=== PATIENT | female | born 1990 | race Caucasian/White ===

== ENCOUNTER 2016-05-07 20:15 | Emergency (ER) | payer BC, OTHER ==
[~2016-05-07] VITALS: Ht 167.6 cm; Wt 132.9 kg
[~2016-05-07 20:15] MED LIST: BCPILLS PO; DIPH25CA65 PO; PHEN37.585 PO
[2016-05-07 20:29] VITALS: TEMP 36.8; Ht 167.6 cm; Wt 132.9 kg
[2016-05-07] MEDS ORDERED: TRAMADOL HCL 50 MG TAB PO STA (20:54)
[2016-05-07] MEDS ORDERED: ULT/50 PO (21:04)
[2016-05-07] MEDS ORDERED: FLX/5 PO (21:04)
--- NOTE | 2016-05-07 21:19 | DIAGNOSTIC IMAGING REPORT ---
LEFT TIBIA/FIBULA 2 VIEWS ROUTINE CLINICAL HISTORY: left knee/leg injury, foot numbness COMPARISON: None. DISCUSSION: The bones and joint spaces appear intact. There is no evidence of fracture, dislocation or bony disease. There is no evidence for soft tissue swelling. IMPRESSION: Negative study. Electronically signed by: Chucky Bailey M.D. 05/07/2016 9:18 PM Dictated Date/Time: 05/07/2016 9:18 PM
--- NOTE | 2016-05-07 21:19 | DIAGNOSTIC IMAGING REPORT ---
LEFT KNEE 3 VIEWS CLINICAL HISTORY: left knee/leg injury, foot numbness pain COMPARISON: None. DISCUSSION: Lateral partial patellar subluxation. Small joint effusion. No evidence for fracture. Joint spaces are well preserved. There is no evidence for soft tissue swelling. IMPRESSION: Lateral patellar subluxation. Electronically signed by: Chucky Bailey M.D. 05/07/2016 9:18 PM Dictated Date/Time: 05/07/2016 9:17 PM
[2016-05-07] MEDS ORDERED: OXYCODONE HCL IR 5 MG TAB (IMMEDIATE RELEASE) PO STA (21:50)
--- NOTE | 2016-05-07 22:31 | DIAGNOSTIC IMAGING REPORT ---
RIGHT KNEE 3 VIEWS CLINICAL HISTORY: compare to left knee Right trauma COMPARISON: Left knee same date DISCUSSION: The bones and joint spaces appear intact. There is no evidence of fracture, dislocation or bony disease. There is no evidence for soft tissue swelling. IMPRESSION: Negative study. All bony structures are aligned appropriately in the right knee. Electronically signed by: Chucky Bailey M.D. 05/07/2016 10:30 PM Dictated Date/Time: 05/07/2016 10:29 PM
--- NOTE | 2016-05-07 23:59 | EMERGENCY ROOM VISIT NOTE ---
ED Visit Note First contact with patient: 20:40 CHIEF COMPLAINT: Knee pain HISTORY OF PRESENT ILLNESS: This 26-year-old female patient presents to the emergency department ambulatory complaining of left knee pain. The patient reports that she fell and twisted her knee on a trampoline 3 days ago. At that time, she was seen at [facility] emergency department and had x-rays of the knee which were normal. She was seen at [facility] yesterday and states that they are awaiting insurance approval to order an MRI of the knee. She denies any history of knee problems. The patient presents today due to increased pain and states that her left foot is colder than the right. She does report some numbness of the left foot. She rates her discomfort a 9/10. She has been taking tramadol at home for pain with some relief. She has been using crutches to aid with ambulation. No ankle, foot or hip pain. REVIEW OF SYSTEMS: A 6 system review of systems was completed with positives and pertinent negatives listed in the HPI. ALLERGIES: No known drug allergies MEDICATIONS: Tramadol, Flexeril PMH: No significant past medical history. SOCIAL HISTORY: The patient lives locally with family. PHYSICAL EXAM: Vital Signs: Reviewed Nurse's notes, vital signs stable. GENERAL : This is a 26-year-old female, no acute distress, but appears in pain, well- developed, well-nourished. MENTAL STATUS: Alert, oriented to person place and time, and cooperative. MUSCULOSKELETAL: Examination of the left knee is difficult secondary to patient's body habitus. There is tenderness over the lateral aspect of the left knee. There is no ecchymosis or significant swelling. Patient has significantly decreased range of motion secondary to pain. Ligamentous examination cannot be performed due to patient discomfort. The left foot is slightly colder than the right, but the toes are well perfused. Dorsalis pedis pulse 2+ bilaterally. Sensation to pain and light touch is intact. Capillary refill less than 2 seconds. EMERGENCY DEPARTMENT COURSE: I examined the patient. She was given 50 mg tramadol for pain. She was later given 5 mg OxyIR for pain. X-rays of the left knee and tib-fib/fib were reviewed by myself and read by radiology and reveal partial lateral subluxation of the patella. I did attempt reduction, but was unsuccessful. On examination, the patient does have some temperature change in the left foot compared to the right. She does have good pedal pulses. I spoke with Dr. Rahman regarding the patient. He felt that the subluxation may be secondary to the patient's body habitus and recommended contralateral films and arterial Doppler of the left leg. He felt that as long as there was no vascular injury, the patient could be discharged home in a knee immobilizer to follow-up in the office. X-rays of the right knee were performed and were normal. There was no subluxation of the patella. Arterial Doppler was performed of the left leg and showed normal arterial flow. The patient was informed of all findings. She has a knee immobilizer and crutches and understands that she will need to follow-up with orthopedics within the next 1-2 days for further evaluation of this knee pain. She should return sooner for worsening symptoms. She verbalized understanding of my assessment and treatment plan. The patient was discharged home in good condition. DIAGNOSIS: Left knee injury Problem List Medical Problems: (1) Kidney stones Status: Resolved Current/Historical Medications Scheduled Cyclobenzaprine HCl (Cyclobenzaprine HCl), 5 MG PO PRN Tramadol Hcl (Ultram), 50 MG PO Q6H Allergies Coded Allergies: Pineapple (Verified Allergy, Unknown, numbness of mouth and hands, swelling, 06/26/15) Vital Signs Date Time Temp Pulse Resp B/P Pulse Ox O2 Delivery O2 Flow Rate FiO2 05/08/16 00:10 102 18 137/84 98 05/07/16 20:29 36.8 114 20 97 Room Air Medications Administered Medications (Trade) Dose Ordered Sig/Jaymie Route Start Time Stop Time Status Last Admin Dose Admin Tramadol HCl (Ultram Tab) 50 mg NOW STAT PO 05/07/16 20:54 05/07/16 20:55 DC 05/07/16 21:16 50 MG Oxycodone HCl (Roxicodone Immediate Rel Tab) 5 mg NOW STAT PO 05/07/16 21:50 05/07/16 21:51 DC 05/07/16 22:00 5 MG Departure Information Impression Primary Impression: Lateral subluxation of left patella Dispostion Home / Self-Care Condition GOOD Referrals Omar Rodriguez M.D. (PCP) Sergo RahmanD.Dior Patient Instructions My [facility] Additional Instructions You have been treated in the Emergency Department for Knee Pain. You have received pain medicine in the emergency department which impairs your ability to operate a vehicle. It is illegal for you to drive after receiving these medicines. For pain control, you can use the following dbaw-tfy-eoolgsg medicines (if >12 yo): - Regular strength (325mg/tab) Tylenol (acetaminophen) 2 tabs every 4-6 hours as needed. Do not exceed 12 tablets in a 24 hour period. Avoid taking more than 4 grams (4000 mg) of Tylenol per day. This includes any other sources of acetaminophen you may take on a regular basis. - Regular strength (200 mg/tab) Advil (ibuprofen) 1-2 tabs every 4-6 hours as needed. Do not exceed a dose of 3200 mg per day. If this is a recent injury (<24 hrs), ice can be applied to the area of pain for the first 3 days to help decrease pain and inflammation. Ice massages can be performed by freezing water in a paper cup, peeling back the cup to expose the ice and then massaging over the affected area. You have been provided the number for an Orthopaedic Surgeon. You should call this number as soon as possible to establish a follow-up visit from today's Emergency Department visit. Keep the knee brace in place until cleared by Orthopedics. Use the crutches you have been provided to keep ALL weight off of the knee until weight bearing is tolerable. Return to the Emergency Department if your current symptoms worsen despite treatment course outlined above. Problem Qualifiers Primary Impression: Lateral subluxation of left patella Encounter type: initial encounter Qualified Codes: S83.012A - Lateral subluxation of left patella, initial encounter
[2016-05-08 00:10] VITALS: BP 137/84; PULSE 102; O2SAT 98
--- NOTE | 2016-05-08 06:48 | DIAGNOSTIC IMAGING REPORT ---
LEFT LOWER EXTREMITY ARTERIAL DOPPLER ULTRASOUND CLINICAL HISTORY: Left knee injury, foot cold, numbness COMPARISON STUDY: No previous studies for comparison TECHNIQUE: Color and duplex Doppler sonography of the arterial system of the left lower extremity was performed. FINDINGS: The left ankle to brachial index measured 1.08 when utilizing the posterior tibial artery and 1.1 when using the dorsalis pedis. There is triphasic flow within the left common femoral, superficial femoral, popliteal, posterior tibial and peroneal arteries with biphasic flow within the anterior tibial and dorsalis pedis. No elevated velocities were identified within the left lower extremity. IMPRESSION: 1. Unremarkable left lower extremity arterial Doppler. No stenosis or vessel occlusion identified. 2. Normal left ankle to brachial index. Electronically signed by: Alexi Silvestre M.D. 05/08/2016 6:47 AM Dictated Date/Time: 05/08/2016 6:45 AM
== END 2016-05-08 00:11 | disposition home or self-care (01) ==
LOC: C.EDB 20:16 → C.EDD 05-08 00:11
DX: S83.012A Lateral subluxation of left patella, initial encounter (principal); W09.8XXA Fall on or from other playground equipment, initial encounter; Y93.44 Activity, trampolining; Y99.8 Other external cause status

== ENCOUNTER → 2017-08-08 | Outpatient (CLI) | payer OTHER ==
[~2017-08-08] MED LIST changes: -BCPILLS PO; -DIPH25CA65 PO; +FLX/5 PO; -PHEN37.585 PO; +ULT/50 PO
== END | disposition home or self-care (01) ==
LOC: C.LABSPEC 15:38
PROVIDERS: ATTEND Obstetrics & Gynecology
DX: Z34.01 Encounter for supervision of normal first pregnancy, first trimester (principal)

== ENCOUNTER → 2017-08-15 | Outpatient (CLI) | payer OTHER ==
[2017-08-15 13:20] LABS: BASO % 0.2 %; BASO ABS # 0.03 K/uL (0-0.2); EOS % 0.7 %; EOS ABS # 0.09 K/uL (0-0.5); HEMATOCRIT 36.6 % (37-47); HEMOGLOBIN 12.9 g/dL (12.0-16.0); LYMPH % 16.6 %; LYMPH ABS # 2.15 K/uL (1.2-3.4); MEAN CELL VOLUME 80.4 fL (80-100); MEAN CORPUSCULAR HEMOGLOBIN 28.4 pg (25-34); MEAN CORPUSCULAR HGB CONC 35.2 g/dl (32-36); MEAN PLATELET VOLUME 10.5 fL (7.4-10.4); MONO % 6.6 %; MONO ABS # 0.86 K/uL (0.11-0.59); NEUT % 75.1 %; NEUT ABS # 9.75 K/uL (1.4-6.5); PLATELET COUNT 234 K/uL (130-400); RED CELL DISTRIBUTION WIDTH CV 12.5 % (11.5-14.5); RED CELL DISTRIBUTION WIDTH SD 36.3 fL (36.4-46.3); WHITE BLOOD COUNT 12.98 K/uL (4.8-10.8)
== END | disposition home or self-care (01) ==
LOC: C.LAB1850 12:38
PROVIDERS: ATTEND Obstetrics & Gynecology
DX: Z34.01 Encounter for supervision of normal first pregnancy, first trimester (principal)

== ENCOUNTER 2019-08-16 05:43 | Inpatient (IN) ==
--- NOTE | 2019-08-11 17:30 | History & Physical Report ---
Date of Service August 11, 2019 Assessment & Plan (1) : Plan for repeat section. Informed consent signed in office, questions answered. (2) Previous delivery affecting , antepartum: History of Present Illness Chief Complaint: Repeat section Primary Care Provider: Omar Rodriguez 29yo @ 39 05/07 with h/o , desires repeat. complicated by: GDM on Insulin WKLY NST's @32wks and TWICE wkly @36wks Serial Growth US @ 28wks Deliver by EDC Obesity *BMI 35 or >At start of preg, growth US @ 32wks Prior for Oligo @ 38wk Delivered Feb 2018. LEEP 07/17. Less than 18mos from last delivery. Will be for Repeat CS. C/S RESCHEDULED FOR 08/[address] COLIN AND DR. PYLE ASSIST [facility] anatomy scan- Apr 15 @945, needs f/u d/t body habitus-scheduled on 05/05 - Anatomy scan 05/05 at [facility] unremarkable-[facility] - Fundal placenta per [facility] Allergies Allergy/AdvReac Type Severity Reaction Status Date / Time pineapple Allergy Severe numbness Verified 08/05/19 09:37 of mouth and hands, swelling No Known Drug Allergies Allergy Verified 08/05/19 09:37 Home Medications Home Medications Medication Instructions Recorded Confirmed Type PNV cmb#95-ferrous fumarate-FA 1 tab PO DAILY 03/12/18 08/05/19 History [] Accu-Chek Fastclix Lancet Drum #204 ea NS 02/16/19 08/05/19 Rx Accu-Chek Guide #200 ea NS 02/16/19 08/05/19 Rx Accu-Chek Guide Glucose Meter #1 ea NS 02/16/19 08/05/19 Rx acetone (urine) test #50 ea 02/16/19 08/05/19 Rx blood sugar diagnostic #360 ea 05/26/19 08/05/19 Rx insulin syringe-needle U-100 0.5 #50 ea 06/15/19 08/05/19 Rx mL 31 gauge x 5/16" pen needle, diabetic 32 gauge x #100 ea 06/15/19 08/05/19 Rx 5/32" acetaminophen [Acetaminophen Extra 1,000 mg PO Q6H PRN 07/30/19 08/05/19 History Strength] docusate sodium 500 mg PO HS 07/30/19 08/05/19 History Patient History Medical History GERD (gastroesophageal reflux disease) Gestational diabetes History of kidney stones NO SURGERY History of panic attacks Hx of chlamydia infection 10 YEARS AGO Oligohydramnios WITH LAST (NOT A CURRENT PROBLEM) Passed out "WITH SIGHT OR TALKING ABOUT BLOOD" Temporomandibular joint disorder Unfavorable cervix in term Surgical History History of colonoscopy History of tonsillectomy S/P section X 1 S/P knee surgery LEFT KNEE S/P loop electrosurgical excision procedure S/P wisdom tooth extraction Family History Grandfather (Paternal) Diabetes mellitus, type 2 Aunt Diabetes mellitus, type 2 Brother Hypertension Mother Cancer Social History Preferred Language: Sinhala Communication Ability: Effective Ore Miner Required: Voice Beliefs That Will Affect Care: None marital status: marital status details: Gerardo Harrington (29) [phone] Current Living Situation: Family Current Living Situation Comment: lives with spouse, daughter, no pets current occupational status: unemployed 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 No s/s chorio or abruption. Skin: no rashes, warm and dry Psychiatric: A+Ox3, euthymic affect Monitoring External Monitor Please see L&D flowsheet. Coding Level of Care Code None Diagnoses Z34.90 Previous delivery affecting , antepartum O34.219
--- NOTE | 2019-08-13 10:03 | Anesthesiology Consultation ---
Date of Service August 13, 2019 Assessment & Plan (1) Encounter for pre-operative examination: Chart Review Chart Review: Acceptable Risk for Surgery and Patient NOT seen in Pre Admission Testing Consults Requested none Additional Notes Travel assessment/history reviewed - low risk at this time - will be reviewed the morning of surgery. History Surgery Operation Date: 08/16/19 07:30 Proposed Procedures p Section - Ivelisse Colin DO Height/Weight Height: 5 ft 6 in Weight: 151.046 kg Allergies Allergy/AdvReac Type Severity Reaction Status Date / Time pineapple Allergy Severe numbness Verified 08/05/19 09:37 of mouth and hands, swelling No Known Drug Allergies Allergy Verified 08/05/19 09:37 Medications Home Medications Medication Instructions Recorded Confirmed Last Taken PNV cmb#95-ferrous fumarate-FA 1 tab PO DAILY 03/12/18 08/05/19 03/12/18 02:00 [] Accu-Chek Fastclix Lancet Drum #204 ea NS 02/16/19 08/05/19 Unknown Accu-Chek Guide #200 ea NS 02/16/19 08/05/19 Unknown Accu-Chek Guide Glucose Meter #1 ea NS 02/16/19 08/05/19 Unknown acetone (urine) test #50 ea 02/16/19 08/05/19 Unknown blood sugar diagnostic #360 ea 05/26/19 08/05/19 Unknown insulin syringe-needle U-100 0.5 #50 ea 06/15/19 08/05/19 Unknown mL 31 gauge x 5/16" pen needle, diabetic 32 gauge x #100 ea 06/15/19 08/05/19 Unknown 5/32" acetaminophen [Acetaminophen Extra 1,000 mg PO Q6H PRN 07/30/19 08/05/19 Unknown Strength] docusate sodium 500 mg PO HS 07/30/19 08/05/19 Unknown Past Medical History Medical History (Updated 08/13/19 @ 10:02 by Nicol Land MD) GERD (gastroesophageal reflux disease) Gestational diabetes History of kidney stones NO SURGERY History of panic attacks Hx of chlamydia infection 10 YEARS AGO Morbid obesity Oligohydramnios WITH LAST (NOT A CURRENT PROBLEM) Passed out "WITH SIGHT OR TALKING ABOUT BLOOD" Temporomandibular joint disorder Unfavorable cervix in term Exercise / Class Metabolic Activity II 4-5 Yardwork/Stairs/Walk up hill (denies CP or SOB) Past Family History Family History Grandfather (Paternal) Diabetes mellitus, type 2 Aunt Diabetes mellitus, type 2 Brother Hypertension Mother Cancer Past Surgical History Surgical History History of colonoscopy History of tonsillectomy S/P section X 1 S/P knee surgery LEFT KNEE S/P loop electrosurgical excision procedure S/P wisdom tooth extraction Social History Smoking Status: Former smoker tobacco type: cigarettes Do You Dip or Chew Tobacco: No Smoking End Date: 11 YEARS AGO Hx Alcohol Use: No Hx Substance Use: No substance use type: does not use
[~2019-08-16 05:43] MED LIST changes: -FLX/5 PO; +SODIUM CHLORIDE 0.9% 250 ML IV PRN; -ULT/50 PO
[2019-08-16] MEDS ORDERED: CEFAZOLIN IV SCH (06:00)
[2019-08-16] MEDS ORDERED: CITRIC ACID/SODIUM CITRATE 15 ML UDC PO SCH (06:00)
[2019-08-16] MEDS ORDERED: CEFAZOLIN 3,000 MG in DEXTROSE 5% 50 ML IV SCH (06:00)
[2019-08-16 06:09] LABS: Basophils # (auto) 0.02 K/uL (0-0.2); Basophils % (auto) 0.2 %; Eosinophils # (auto) 0.09 K/uL (0-0.5); Eosinophils % (auto) 0.9 %; Hematocrit (blood only) 37.6 % (37-47); Hemoglobin 12.4 g/dL (12.0-16.0); Immature Granulocytes # (auto) 0.16 K/uL (0.00-0.02); Immature Granulocytes % (auto) 1.6 %; Lymphocytes # (auto) 2.47 K/uL (1.2-3.4); Lymphocytes % (auto) 24.7 %; Mean Corpuscular Hemoglobin 27.1 pg (25-34); Mean Corpuscular Volume 82.1 fL (80-100); Mean Platelet Volume 10.5 fL (7.4-10.4); Monocytes # (auto) 0.91 K/uL (0.11-0.59); Monocytes % (auto) 9.1 %; Neutrophils # (auto) 6.37 K/uL (1.4-6.5); Neutrophils % (auto) 63.5 %; Platelet Count 171 K/uL (130-400); RDW Coefficient of Variation 16.2 % (11.5-14.5); RDW Standard Deviation 47.8 fL (36.4-46.3); Red Blood Count 4.58 M/uL (4.2-5.4); White Blood Count 10.02 K/uL (4.8-10.8)
[2019-08-16] MEDS: LACTATED RINGER'S 1,000 ML IV SCH ×2 (06:10→07:12)
[2019-08-16] MEDS ORDERED: fentaNYL citrate 100 MCG/2 ML VIAL ONE (06:48)
[2019-08-16] MEDS ORDERED: OXYTOCIN 10 UNITS/ML VIAL ONE (06:48)
[2019-08-16] MEDS ORDERED: MoRPHine SULFATE PF 1 MG/ML 10 ML AMP/VIAL ONE (06:48)
--- NOTE | 2019-08-16 07:19 | History & Physical Bridge Note ---
Date of Service August 16, 2019 History & Physical Bridge Note I have examined the patient, reviewed the History & Physical and in the interval since the performance of the History & Physical I have noted the following changes of clinical significance: no changes noted
[2019-08-16] MEDS ORDERED: ePHEDrine sulfate 50 MG/ML AMP IV PRN (07:23)
[2019-08-16] MEDS ORDERED: MoRPHine SULFATE PF 1 MG/ML 10 ML AMP/VIAL INT SPINAL ONE (07:23)
[2019-08-16] MEDS ORDERED: MoRPHine SULFATE 2 MG/ML CARP IV PRN (07:23)
[2019-08-16] MEDS ORDERED: NALBUPHINE HCL INJ 10 MG/ML AMP IV PRN (07:23)
[2019-08-16] MEDS ORDERED: ONDANSETRON INJ 2 MG/ML 2 ML VIAL IV PRN (07:23)
[2019-08-16] MEDS ORDERED: LACTATED RINGER'S 500 ML IV PRN (07:23)
[2019-08-16] MEDS ORDERED: NALOXONE HCL 0.4 MG/1 ML VIAL/CARP IV PRN (07:23)
[2019-08-16] MEDS ORDERED: NALOXONE HCL 0.08 MG in SYRINGE 1.8 ML IV PRN (07:23)
[2019-08-16] MEDS ORDERED: DiphenhydrAMINE HCL 50 MG/ML VIAL IV PRN (07:23)
[2019-08-16] MEDS ORDERED: PROMETHAZINE HCL 25 MG in SODIUM CHLORIDE 0.9% 50 ML IV PRN (07:23)
[2019-08-16] MEDS ORDERED: NALOXONE HCL 1 MG in SODIUM CHLORIDE 0.9% 1000ML 1,000 ML IV PRN (07:23)
[2019-08-16] MEDS ORDERED: DC INTRASPINAL MORPHINE SCH (07:30)
[2019-08-16] MEDS ORDERED: NO NARCOTICS OR SEDATIVES SCH (07:30)
[2019-08-16] MEDS ORDERED: SODIUM CHLORIDE 0.9% 1000ML 1,000 ML IV SCH (07:30)
[2019-08-16] MEDS ORDERED: ONDANSETRON INJ 2 MG/ML 2 ML VIAL ONE (08:18)
[2019-08-16] MEDS ORDERED: MAGNESIUM HYDROXIDE SUSP 30 ML UDC PO PRN (09:14)
[2019-08-16] MEDS ORDERED: DIPHTHERIA/TETANUS/PERTUSSIS 0.5 ML SYR/VIAL IM ONE (09:14)
[2019-08-16] MEDS ORDERED: SUPERCREAM 0.870% 15 GM JAR EXT PRN (09:14)
[2019-08-16] MEDS ORDERED: BENZOCAINE 20% AER SPR 82.5 GM CAN EXT PRN (09:14)
[2019-08-16] MEDS ORDERED: HYDROCORTISONE ACETATE 25 MG SUPP PR PRN (09:14)
[2019-08-16] MEDS ORDERED: SENNA 8.6 MG TAB PO PRN (09:14)
--- NOTE | 2019-08-16 09:14 | Operative Report ---
PG Post Operative Report Pre & Post Diagnosis Operation Date: 08/16/19 07:30 Pre-Op Diagnosis: History of previous x 1 Desired Repeat Gestational Diabetes requiring insulin Obesity Post-Op Diagnosis: same I identified the patient and participated in the time-out.: Yes Procedure Operation Date: 08/16/19 07:30 Actual Procedures p Repeat low transverse Section - [facility] @ 0825 - Ivelisse Colin DO Surgeon Ivelisse Colin, Network Systems Analyst Shweta Jones MD, Tien Sawant MD PGY1 Estimated Blood Loss 500 Findings Consistent with Post-Op Diagnosis Viable female , Apgars 8/9 Weight 9#5 Specimens placenta, cord blood, cord gas. Drains vela, clear yellow Anesthesia Type Spinal Complications none Disposition Accompanied Patient To Recovery: Yes Disposition: L&D Indications 29yo @ 39 2/7 with h/o x 1, desire for repeat. Also complicated by obesity, GDMA2 . Description of Procedure Patient was seen in the preoperative holding area, where risks benefits and alternatives to surgery reviewed. She elected to proceed with the case. She was taken to the operating room, spinal anesthesia was performed. She received 3 g of Ancef preoperatively. She was then prepared and draped in the usual sterile fashion in the supine position with a leftward tilt. Timeout was confirmed. Anesthesia adequate. A Pfannenstiel skin incision was made with a scalpel, and carried through to the underlying layer of fascia. This was nicked at midline, and the incision was extended bilaterally both sharply sharply and bluntly. The superior aspect of the fascial incision was grasped with Mya clamps x2, elevated off the underlying rectus abdominis muscles, and dissected sharply and bluntly. In similar fashion, the inferior aspect of the fascial incision was dissected. The rectus abdominis muscles were midline, and the peritoneum was entered bluntly digitally. This incision was extended bluntly and sharply. The bladder blade was placed. A low transverse uterine incision was made with a new scalpel. The bladder was far away from the incision. The was delivered from a cephalic presentation. The head was delivered, followed by the right arm, followed by the left arm, followed by the body. No nuchal cord was noted. Spontaneous cry was heard on the field. The cord was doubly clamped and cut. The baby was handed off to the waiting pole inspector. Cord sample for blood gases were obtained. Cord blood was obtained. The placenta was delivered spontaneously intact. The uterus was exteriorized, and cleared of all clots and debris. The hysterotomy incision was reapproximated using 0 Vicryl in a running locked stitch. This second layer of the same suture was used to imbricate the incision. The posterior uterus was evaluated and found to be normal. The uterus was replaced into the abdomen. Xlkrwa-hu-[id number] sutures were used at the center aspect of the hysterotomy incision to obtain excellent hemostasis. The gutters were cleared of clots and debris. The uterus and hysterotomy were evaluated again, and found to be hemostatic. The fascial incision was reapproximated using 0 Vicryl in a running stitch. The subcutaneous tissue was irrigated, and reapproximated using 2-0 plain gut in a running stitch. The skin was reapproximated with 4-0 Vicryl in a running subcuticular stitch. A lyly wound dressing was applied. Sponge, instrument, needle counts were correct at the conclusion of the case x2. The patient was then moved to her labor and delivery room to recover in stable and good condition. I attest to the content of the Intraoperative Record and any orders documented therein. Any exceptions are noted below.
[2019-08-16] MEDS ORDERED: PHENYLEPHRINE 100MCG/ML 5ML SYR ONE (09:19)
[2019-08-16] MEDS ORDERED: ePHEDrine sulfate 50 MG/ML SYR ONE (09:19)
--- NOTE | 2019-08-16 10:05 | Anesthesiology Progress Note ---
Date of Service August 16, 2019 Anesthesia Post Procedure Vital Signs Vital Signs: Temp Pulse Resp BP Pulse Ox 08/16/19 10:00 94 H 98 08/16/19 09:55 94 H 122/57 L 99 08/16/19 09:50 106 H 97 08/16/19 09:45 98 H 119/61 99 08/16/19 09:40 97 H 95 08/16/19 09:39 94 H 94 08/16/19 09:35 100 H 130/60 87 L 08/16/19 09:34 101 H 92 08/16/19 09:30 105 H 100 08/16/19 09:25 96 H 128/61 98 08/16/19 09:20 90 100 08/16/19 09:15 99 H 132/68 100 08/16/19 07:18 20 08/16/19 05:56 36.8 C 18 08/16/19 05:49 96 H 137/84 Transfer of Care Handoff Completed per policy Notes Mental Status: alert / awake / arousable and participated in evaluation Patient Amnestic to Procedure: Yes Nausea / Vomiting: adequately controlled Pain: adequately controlled Airway Patency, RR, SpO2: stable & adequate BP & HR: stable & adequate Hydration State: stable & adequate Neuraxial Anesthesia: was administered and sensory block is resolving Anesthetic Complications: no major complications apparent and Pt Satisfied with anesthetic care
[2019-08-16 10:07] LABS: Base Excess Cord Arterial Bld -2.8 mEq/L (-9-1.8); CO2 Cord Arterial Blood 64 mmHg (39.1-73.5); HCO3 Cord Arterial Blood 26 mmol/L (19.7-28.5); Oxygen Sat Cord Arterial Blood < 60.0 % (<60); PO2 Cord Arterial Blood 21 mmHg (4.1-31.7); pH Cord Arterial Blood 7.22 (7.1-7.38)
[2019-08-16 10:08] LABS: Base Excess Cord Venous Blood -1.5 mEq/L (-7.7-1.9); Cord Venous Blood HCO3 25 mmol/L (18.4-26.8); Cord Venous Blood PCO2 51 mmHg (30.4-57.2); Cord Venous Blood PO2 31 mmHg (14.1-43.3); Cord Venous Blood pH 7.32 (7.20-7.44)
[2019-08-16] MEDS: OXYTOCIN 30 UNITS in LACTATED RINGER'S 1,000 ML IV SCH ×2 (10:30→19:02)
[2019-08-16] MEDS: SIMETHICONE 80 MG CHEW PO SCH ×3 (16:07→20:33)
[2019-08-16] MEDS: KETOROLAC 30 MG/ML VIAL IV PRN ×2 (16:56→22:40)
[2019-08-16] MEDS: DOCUSATE SODIUM 100 MG CAP PO SCH (20:33)
[2019-08-17] MEDS ORDERED: KETOROLAC 30 MG/ML VIAL IV PRN (01:24)
[2019-08-17] MEDS ORDERED: DiphenhydrAMINE HCL 50 MG/ML VIAL IV PRN (01:24)
[2019-08-17] MEDS ORDERED: MEPERIDINE HCL 50 MG/ML CARP IV PRN (01:24)
[2019-08-17] MEDS ORDERED: ONDANSETRON INJ 2 MG/ML 2 ML VIAL IV PRN (01:24)
[2019-08-17] MEDS ORDERED: PROMETHAZINE HCL 25 MG in SODIUM CHLORIDE 0.9% 50 ML IV PRN (01:24)
[2019-08-17] MEDS: OXYCODONE/ACETAMINOPHEN 5mg/325mg TAB PO PRN ×5 (01:46→20:49)
--- NOTE | 2019-08-17 05:52 | Obstetrical Progress Note ---
Date of Service August 17, 2019 Assessment & Plan Admission and Anticipated Discharge Date Admission Date: August 16, 2019 29 yo s/p repeat CS due to desire for repeat, complicated by GDMA2 and obesity - POD# 1 - GBS negative, Blood Type O+ - Hgb 9.8 - Feels well today. Eating well, voiding well, ambulating well. - Pain well controlled. - Routine post operative care - After discharge will have [address] Colin. Supervising Physician Co-Signing Physician Notes Resident Physician Supervision Note: I was present with [Name of resident] during the history and exam. I discussed the case with the resident and agree with the findings and plan as documented in the note. Any exceptions or clarifications are listed here: [None] Documented By: Mariella Jones MD, FACOG Subjective Doing well this morning with some pain that she describes as 5/10 in her back. She is and feels that this is going well. She has been walking well, drinking, and voiding without difficulty. She has not passed gas but feels that it will be coming soon. Review of Systems Review of Systems: Denies fever, chills, sweats Denies shortness of breath, difficulty breathing, chest pain, palpitations, ch est pressure. Denies breast pain. Denies dysuria. Denies headache. Physical Exam Physical Exam: General: Alert, oriented. No acute distress. Cardiac: Regular rate and rhythm, no murmurs/rubs/gallops. Respiratory: Clear to auscultation anterior and posteriorly, no wheezes/rales/rhonchi. No increased work of breathing. Symmetrical chest rise. No respiratory distress. Abdomen: Soft, nontender, nondistended. Bowel sounds present. Uterus: Uterine fundus firm, palpable 1cm below umbilicus. Lower Extremities: No lower extremity edema or swelling. No deep calf pain. Ramez's negative bilaterally. surgical dressing intact, clean, dry. No warmth, erythema, discharge, around dressing. Results & Data ([facility]) Vital Signs (Past 12 Hours) Vital Signs Temp Pulse Resp BP Pulse Ox 08/17/19 01:25 16 99 08/17/19 00:15 16 96 08/16/19 23:25 37.0 C 94 H 12 90/62 L 97 05/18/20 22:13 18 97 08/16/19 21:00 18 100 08/16/19 20:05 18 97 08/16/19 19:05 37.0 C 96 H 18 111/76 96 Resident Activity Tracking Resident Involvement: Resident Care Provided Care Provided: Adult Hospital Medicine
[2019-08-17 06:25] LABS: Basophils # (auto) 0.01 K/uL (0-0.2); Basophils % (auto) 0.1 %; Eosinophils # (auto) 0.09 K/uL (0-0.5); Eosinophils % (auto) 0.9 %; Hematocrit (blood only) 29.8 % (37-47); Hemoglobin 9.8 g/dL (12.0-16.0); Immature Granulocytes # (auto) 0.09 K/uL (0.00-0.02); Immature Granulocytes % (auto) 0.9 %; Lymphocytes # (auto) 1.73 K/uL (1.2-3.4); Mean Corpuscular Hemoglobin 27.1 pg (25-34); Mean Corpuscular Hgb Conc 32.9 g/dL (32-36); Mean Corpuscular Volume 82.3 fL (80-100); Mean Platelet Volume 10.3 fL (7.4-10.4); Monocytes # (auto) 0.87 K/uL (0.11-0.59); Monocytes % (auto) 9.1 %; Platelet Count 137 K/uL (130-400); RDW Coefficient of Variation 16.4 % (11.5-14.5); Red Blood Count 3.62 M/uL (4.2-5.4); White Blood Count 9.59 K/uL (4.8-10.8)
[2019-08-17] MEDS: IBUPROFEN 600 MG TAB PO PRN ×4 (06:51→20:49)
[2019-08-17] MEDS: PRENATAL VITAMIN 1 TAB PO SCH (09:14)
[2019-08-17] MEDS: SIMETHICONE 80 MG CHEW PO SCH ×4 (09:14→20:49)
[2019-08-17] MEDS: FERROUS SULFATE 325 MG TAB PO SCH (09:14)
[2019-08-17] MEDS: DOCUSATE SODIUM 100 MG CAP PO SCH ×2 (09:14→20:49)
--- NOTE | 2019-08-17 11:19 | Anesthesiology Progress Note ---
Date of Service August 17, 2019 Anesthesia Post Procedure Vital Signs Vital Signs: Temp Pulse Pulse Resp BP Pulse Ox 08/17/19 08:00 36.7 C 98 H 18 115/73 97 08/17/19 01:25 16 99 08/17/19 00:15 16 96 08/16/19 23:25 37.0 C 94 H 12 90/62 L 97 08/16/19 22:13 18 97 08/16/19 21:00 18 100 08/16/19 20:05 18 97 08/16/19 19:05 37.0 C 96 H 18 111/76 96 08/16/19 17:40 18 96 08/16/19 16:30 18 96 08/16/19 15:25 36.9 C 94 H 18 121/73 97 08/16/19 14:30 18 96 08/16/19 13:10 95 H 18 109/61 95 08/16/19 12:10 36.6 C 102 H 18 105/69 98 08/16/19 11:21 107 H 97 Pain Intensity Bilateral Abdomen: Pain Intensity: 1 Transfer of Care Handoff Completed per policy Notes Mental Status: alert / awake / arousable and participated in evaluation Nausea / Vomiting: adequately controlled Pain: adequately controlled Airway Patency, RR, SpO2: stable & adequate BP & HR: stable & adequate Hydration State: stable & adequate Neuraxial Anesthesia: was administered and sensory block resolved Anesthetic Complications: no major complications apparent and Pt Satisfied with anesthetic care Notes: Patient denies headache this morning. Has been up walking without weakness or residual numbness. Patient encouraged to contact anesthesia for any concerns or new headache
[2019-08-17] MEDS ORDERED: bisacodyL 5 MG TABEC PO SCH (20:00)
[2019-08-17] MEDS ORDERED: CALCIUM CARBONATE 500 MG CHEWABLE TAB PO PRN (22:18)
[2019-08-18] MEDS: OXYCODONE/ACETAMINOPHEN 5mg/325mg TAB PO PRN ×3 (01:04→10:47)
[2019-08-18] MEDS: IBUPROFEN 600 MG TAB PO PRN ×3 (01:04→10:47)
--- NOTE | 2019-08-18 06:06 | Obstetrical Progress Note ---
Date of Service August 18, 2019 Assessment & Plan Admission and Anticipated Discharge Date Admission Date: August 16, 2019 29 yo s/p rCS for desired repeat @ 40 weeks, complicated by obesity and GDMA2 - POD# 2 - GBS negative, Blood Type O+ - Pain well controlled - Routine post-operative care - After discharge will have follow up with Dr. Colin. Supervising Physician Co-Signing Physician Notes Patient seen and evaluated and agree with the above findings and plan. Day 2 LTCS. Doing well. Routine care Subjective Doing well this morning, she has been walking, voiding, passing stool, and eating without nausea or vomiting. She states that her bleeding is, "not bad". She has been breast feeding and supplementing with bottle feeding. She had difficulty with her last child. Review of Systems Review of Systems: Denies fever, chills, sweats Denies shortness of breath, difficulty breathing, chest pain, palpitations, chest pressure. Denies breast pain. Denies dysuria. Denies headache. Physical Exam Physical Exam: General: Alert, oriented. No acute distress. Cardiac: Regular rate and rhythm, no murmurs/rubs/gallops. Respiratory: Clear to auscultation anterior and posteriorly, no wheezes/rales/rhonchi. No increased work of breathing. Symmetrical chest rise. No respiratory distress. Abdomen: Soft, nontender, nondistended. Bowel sounds present. Uterus: Uterine fundus firm, palpable 1cm below umbilicus. Lower Extremities: No lower extremity edema or swelling. No deep calf pain. Ramez's negative bilaterally. surgical dressing intact, clean, dry. No warmth, erythema, discharge, around dressing. Results & Data ([facility]) Vital Signs (Past 12 Hours) Vital Signs Temp Pulse Resp BP Pulse Ox 08/17/19 23:10 36.4 C L 98 H 18 111/78 99 08/17/19 20:45 36.9 C 109 H 18 125/73 Resident Activity Tracking Resident Involvement: Resident Care Provided Care Provided: Adult [facility]
[2019-08-18 06:51] LABS: Hematocrit (blood only) 32.7 % (37-47); Hemoglobin 10.4 g/dL (12.0-16.0)
[2019-08-18] MEDS: PRENATAL VITAMIN 1 TAB PO SCH (08:32)
[2019-08-18] MEDS: DOCUSATE SODIUM 100 MG CAP PO SCH (08:32)
[2019-08-18] MEDS: FERROUS SULFATE 325 MG TAB PO SCH (08:32)
[2019-08-18] MEDS: SIMETHICONE 80 MG CHEW PO SCH (08:32)
[2019-08-18] MEDS ORDERED: bisacodyL 10 MG SUPP PR PRN (09:14)
--- NOTE | 2019-08-24 08:19 | Discharge Summary ---
Date of Service August 24, 2019 Admission HPI Per Admitting Provider 29yo @ 39 2/ with h/o , desires repeat. complicated by: GDM on Insulin WKLY NST's @32wks and TWICE wkly @36wks Serial Growth US @ 28wks Deliver by EDC Obesity *BMI 35 or >At start of preg, growth US @ 32wks Prior for Oligo @ 38wk Delivered Feb 2018. LEEP 07/17. Less than 18mos from last delivery. Will be for Repeat CS. C/S RESCHEDULED FOR 08/[address] COLIN AND DR. PYLE ASSIST [facility] anatomy scan- Apr 15 @945, needs f/u d/t body habitus-scheduled on 05/05 - Anatomy scan 05/05 at [facility] - Fundal placenta per [facility] Discharge Data Consultations 08/16/19 05:35 Consult Anesthesiology Stat Procedures Performed Operation Date: 08/16/19 07:30 Actual Procedures p Section - [facility] @ 0825 - Ivelisse Colin DO Hospital Course (1) Previous delivery affecting , antepartum: Admitted following planned section, routine postop care, DC home POD#2. (2) Encounter for supervision of normal in multigravida, antepartum: Coding Level of Care Code None Diagnoses Previous delivery affecting , antepartum O34.219 Encounter for supervision of normal in multigravida, antepartum Z34.80
== END 2019-08-18 14:25 | disposition home or self-care (01) | DRG 788 ==
LOC: 4S1 05:43 → EDSTATUS 07:30 → 4S2 11:20

== ENCOUNTER 2021-04-20 05:25 | Inpatient (IN) ==
--- NOTE | 2021-04-06 10:01 | Anesthesiology Consultation ---
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 No known Covid infection in the past 90 days. Patient is fully vaccinated for Covid. No known Covid positive exposures or Covid related symptoms. Preop Covid testing scheduled either 04/17/21 or 04/18/21= will await results Repeat 08/16/19= SAB done at L3-4. Epidural needle to find space. 4 attempts. Pt vagaled, stopped spinal. Gave BP meds and cooled patient. IV fluids given. History Surgery Operation Date: 04/20/21 07:30 Proposed Procedures p Section (Delivery of Baby Through Abdominal Incision) - Shay Sibley MD s Bilateral Tubal Ligation - Shay Sibley MD Height/Weight Height: 5 ft 6 in Weight: 157.85 kg Allergies Allergy/AdvReac Type Severity Reaction Status Date / Time pineapple Allergy Severe numbness Verified 04/05/21 10:31 of mouth and hands, swelling No Known Drug Allergies Allergy Mild None Verified 04/05/21 10:31 Medications Home Medications Medication Instructions Recorded Confirmed Last Taken vit no.95-ferrous 1 tab PO QAM 03/12/18 04/05/21 08/21/20 fumarate 28 mg-folic acid 800 mcg tablet () epinephrine 0.3 mg/0.3 mL 0.3 mg IM UD PRN 08/21/20 04/05/21 Unknown injection, auto-injector loratadine 10 mg tablet (Claritin) 10 mg PO BID 08/21/20 04/05/21 08/21/20 magnesium 500 mg tablet 500 mg PO QAM 08/21/20 04/05/21 08/21/20 omeprazole 20 mg capsule,delayed 40 mg PO BID 09/14/20 04/05/21 Unknown release acetone (urine) test (Ketone Urine #50 ea 10/12/20 04/05/21 Unknown Test) blood sugar diagnostic (OneTouch #150 ea 10/12/20 04/05/21 Unknown Verio test strips) blood-glucose meter (OneTouch #1 ea 10/12/20 04/05/21 Unknown Verio Flex meter) lancets 33 gauge (OneTouch Delica #150 ea 10/12/20 04/05/21 Unknown Plus Lancet) docusate sodium [Dulcolax Stool 1 tab PO QAM 12/07/20 04/05/21 Unknown Softener (dss)] aspirin 81 mg tablet,delayed 81 mg PO QAM 01/04/21 04/05/21 Unknown release (Adult Low Dose Aspirin) insulin syringe-needle U-100 0.5 #150 ea 03/08/21 04/05/21 Unknown mL 31 gauge x 5/16" (BD Insulin Syringe Ultra-Fine) insulin NPH isoph U-100 human 100 30 - 35 unit SUBCUT QPM 04/04/21 04/05/21 Unknown unit/mL subcutaneous suspension (Humulin N NPH U-100 Insulin (isophane susp)) insulin aspart U-100 100 unit/mL 30 - 35 unit SUBCUT TID 04/04/21 04/05/21 Unknown subcutaneous solution (Novolog U-100 Insulin aspart) Past Medical History Medical History KANDIS II (cervical intraepithelial neoplasia II) GERD (gastroesophageal reflux disease) Gestational diabetes History of IBS History of kidney stones NO SURGERY History of panic attacks History of PCOS Hx of chlamydia infection 10 YEARS AGO Morbid obesity Passed out "WITH SIGHT OR TALKING ABOUT BLOOD" Temporomandibular joint disorder Past Family History Family History Grandfather (Paternal) Diabetes mellitus, type 2 Aunt Diabetes mellitus, type 2 Brother Hypertension Mother Cancer Other No family history of adverse response to anesthesia Past Surgical History Surgical History H/O LEEP History of colonoscopy History of tonsillectomy S/P section X 2 S/P knee surgery LEFT KNEE S/P wisdom tooth extraction Social History Smoking Status: Former smoker tobacco type: cigarettes Do You Dip or Chew Tobacco: No Smoking End Date: 12 years ago Hx Alcohol Use: No Hx Substance Use: No substance use type: does not use Lab Results Anesthesia Preop Results Results Anesthesia Widget: WBC 10.51 K/uL (4.8-10.8) 03/24/21 Hgb 11.9 g/dL (12.0-16.0) L 03/24/21 Hct 36.9 % (37-47) L 03/24/21 Plt 200 K/uL (130-400) 03/24/21 Na 139 mmol/L (136-145) 03/24/21 K 3.8 mmol/L (3.5-5.1) 03/24/21 Cl 108 mmol/L (98-107) H 03/24/21 CO2 24 mmol/L (21-32) 03/24/21 BUN 9 mg/dl (7-18) 03/24/21 Creat 0.68 mg/dl (0.6-1.2) 03/24/21 Glucose Level 102 mg/dl (70-99) H 03/24/21 Urine Color Yellow 03/24/21 Urine Appearance Cloudy (Clear) A 03/24/21 Urine pH 7.0 (4.5-7.5) 03/24/21 Urine Specific [place] 1.031 (1.000-1.030) H 03/24/21 Urine Protein 1+ (Negative) H 03/24/21 Urine Glucose (UA) Negative (Negative) 03/24/21 Urine Ketones Trace (Negative) H 03/24/21 Urine Blood Negative (Negative) 03/24/21 Urine Nitrite Negative (Negative) 03/24/21 Urine Bilirubin Negative (Negative) 03/24/21 Urine Urobilinogen Negative (Negative) 03/24/21 Urine Leukocyte Esterase Negative (Negative) 03/24/21 Urine WBC (Auto) 1-5 /hpf (0-5) 03/24/21 Urine RBC (Auto) 0-4 /hpf (0-4) 03/24/21 Urine Hyaline Casts (Auto) 1-5 /lpf (0-5) 03/24/21 Urine Epithelial Cells (Auto) >30 /lpf (0-5) H 03/24/21 Urine Bacteria (Auto) 1+ (Negative) H 03/24/21 Testing Electrocardiogram Date: 04/29/20 Findings: + NSR @ (73bpm) Normal EKG per cardio.
[2021-04-20] MEDS ORDERED: SODIUM CHLORIDE 0.9% 250 ML IV PRN (05:29)
[2021-04-20 06:03] LABS: Hematocrit (blood only) 39.4 % (37-47); Hemoglobin 12.7 g/dL (12.0-16.0); Mean Corpuscular Hemoglobin 25.7 pg (25-34); Mean Corpuscular Volume 79.6 fL (80-100); Mean Platelet Volume 10.3 fL (7.4-10.4); Platelet Count 189 K/uL (130-400); RDW Coefficient of Variation 16.6 % (11.5-14.5); RDW Standard Deviation 47.3 fL (36.4-46.3); Red Blood Count 4.95 M/uL (4.2-5.4); White Blood Count 9.79 K/uL (4.8-10.8)
[2021-04-20 06:08] LABS: Mean Corpuscular Hgb Conc 32.2 g/dL (32-36)
[2021-04-20] MEDS ORDERED: LACTATED RINGER'S 1,000 ML IV SCH ×2 (06:30→10:21)
[2021-04-20] MEDS ORDERED: CITRIC ACID/SODIUM CITRATE 15 ML UDC PO SCH (06:35)
[2021-04-20] MEDS ORDERED: LACTATED RINGER'S 500 ML IV PRN (07:19)
[2021-04-20] MEDS ORDERED: NALBUPHINE HCL INJ 10 MG/ML AMP IV PRN (07:19)
[2021-04-20] MEDS ORDERED: ONDANSETRON INJ 2 MG/ML 2 ML VIAL IV PRN (07:19)
[2021-04-20] MEDS ORDERED: KETOROLAC 30 MG/ML VIAL IV PRN (07:19)
[2021-04-20] MEDS ORDERED: NALOXONE HCL 1 MG in SODIUM CHLORIDE 0.9% 1000ML 1,000 ML IV PRN (07:19)
[2021-04-20] MEDS ORDERED: ePHEDrine sulfate 50 MG/ML AMP IV PRN (07:19)
[2021-04-20] MEDS ORDERED: NALOXONE HCL 0.08 MG in SYRINGE 1.8 ML IV PRN (07:19)
[2021-04-20] MEDS ORDERED: HYDROmorphone INJ 0.5 MG/0.5 ML SYR IV PRN (07:19)
[2021-04-20] MEDS ORDERED: diphenhydrAMINE 50 MG/ML VIAL IV PRN (07:19)
[2021-04-20] MEDS ORDERED: MoRPHine SULFATE PF 1 MG/ML 10 ML AMP/VIAL INT SPINAL ONE (07:19)
[2021-04-20] MEDS ORDERED: NALOXONE HCL 0.4 MG/1 ML VIAL/CARP IV PRN ×2 (07:19→10:45)
--- NOTE | 2021-04-20 07:26 | History & Physical Report ---
Date of Service April 20, 2021 Assessment & Plan (1) Insulin controlled gestational diabetes mellitus (GDM) during : Plan: 31yo at 39w1d presents for repeat LTCS with hx of x2. Patient desires BTL. Consents reviewed and signed. NST reactive. Please see for additional details 1. Fetus: Reactive NST (2) Gestational diabetes mellitus (GDM) affecting , antepartum: (3) Encounter for supervision of normal in multigravida, antepartum: (4) Previous delivery affecting , antepartum: Admission and Anticipated Discharge Date Admission Date: April 20, 2021 History of Present Illness Primary Care Provider: Carlos Osorio MD 31yo at 39w1d presents for repeat LTCS with hx of x2. Patient desires BTL and has signed MA -31 forms. complicated by: Prior Section affecting (x2) - will need repeat @39wk C/S SCHEDULED FOR 04/20/[address] KHAN AND DR. PYLE ASSIST NEEDS COVID TEST ON 04/18- ORDERED GDM on insulin *Wkly NSTs @32wks and Twice wkly @36wks *Serial growth US @28wks *Deliver by EDC Obesity (BMI 40 and higher @ beginning of ) *Growth US @ 32wks *Weekly NSTs @ 34wks Partial Circumvallate Placenta OB Labs: Blood Type O Positive 09/14/20 Antibody Screen NEGATIVE 09/14/20 Hemoglobin 11.5 g/dL (12.0-16.0) L 02/01/21 Hematocrit 35.9 % (37-47) L 02/01/21 Mean Corpuscular Volume 85.3 fL (80-100) 09/14/20 Platelet Count 234 K/uL (130-400) 09/14/20 Rubella IgG Antibody Immune (Immune) 09/14/20 Rapid Plasma Reagin Nonreactive (Nonreactive) 09/14/20 Hepatitis B Surface Antigen Neg (Neg) 09/14/20 HIV (1&2) Ab and P24 Ag, 4th Gener Neg (Neg) 09/14/20 Glucose 1 Hour 50 gm Load 158 mg/dl (70-130) H 01/02/18 Maternal Serum Alpha Fetoprotein 17.1 ng/mL 11/09/20 OB Optional Labs: Chlamydia trachomatis RNA NOT DETECTED (NOT DETECTED) 09/14/20 Neisseria gonorrhoeae RNA NOT DETECTED (NOT DETECTED) 09/14/20 Alpha Fetoprotein Triple Screen SEE NOTE 11/09/20 Labs Reviewed: low risk panorama akh neg cf/sma--ak Allergies Allergy/AdvReac Type Severity Reaction Status Date / Time pineapple Allergy Severe numbness Verified 04/19/21 10:35 of mouth and hands, swelling No Known Drug Allergies Allergy Mild None Verified 04/19/21 10:35 Home Medications Medication Instructions Recorded Confirmed Type vit no.95-ferrous 1 tab PO QAM 03/12/18 04/19/21 History fumarate 28 mg-folic acid 800 mcg tablet () epinephrine 0.3 mg/0.3 mL 0.3 mg IM UD PRN 08/21/20 04/19/21 History injection, auto-injector loratadine 10 mg tablet (Claritin) 10 mg PO BID 08/21/20 04/20/21 History magnesium 500 mg tablet 500 mg PO QAM 08/21/20 04/20/21 History omeprazole 20 mg capsule,delayed 40 mg PO BID 09/14/20 04/20/21 History release acetone (urine) test (Ketone Urine #50 ea 10/12/20 04/19/21 Rx Test) blood sugar diagnostic (OneTouch #150 ea 10/12/20 04/19/21 Rx Verio test strips) blood-glucose meter (OneTouch #1 ea 10/12/20 04/19/21 Rx Verio Flex meter) lancets 33 gauge (OneTouch Delica #150 ea 10/12/20 04/19/21 Rx Plus Lancet) docusate sodium [Dulcolax Stool 1 tab PO QAM 12/07/20 04/20/21 History Softener (dss)] aspirin 81 mg tablet,delayed 81 mg PO QAM 01/04/21 04/20/21 History release (Adult Low Dose Aspirin) insulin syringe-needle U-100 0.5 #150 ea 03/08/21 04/19/21 Rx mL 31 gauge x 5/16" (BD Insulin Syringe Ultra-Fine) insulin aspart U-100 100 unit/mL 45 unit SUBCUT TID 04/04/21 04/20/21 History subcutaneous solution (Novolog U-100 Insulin aspart) insulin NPH isoph U-100 human 100 40 unit SUBCUT DAILY #10 ml 04/12/21 04/20/21 Rx unit/mL subcutaneous suspension (Novolin N NPH U-100 Insulin isophane) Patient History Medical History KANDIS II (cervical intraepithelial neoplasia II) GERD (gastroesophageal reflux disease) Gestational diabetes History of IBS History of kidney stones NO SURGERY History of panic attacks History of PCOS Hx of chlamydia infection 10 YEARS AGO Morbid obesity Passed out "WITH SIGHT OR TALKING ABOUT BLOOD" Temporomandibular joint disorder Surgical History H/O LEEP History of colonoscopy History of tonsillectomy S/P section X 2 S/P knee surgery LEFT KNEE S/P wisdom tooth extraction Family History Grandfather (Paternal) Diabetes mellitus, type 2 Aunt Diabetes mellitus, type 2 Brother Hypertension Mother Cancer Other No family history of adverse response to anesthesia Social History Smoking Status: Former smoker Tobacco Type: Cigarettes Smoking End Date: 2012; Second Hand Exposure: No; Do You Dip or Chew Tobacco: No; Tobacco Cessation Education Requested by Patient: No Hx Alcohol Use: No Hx Substance Use: No Preferred Language: Danish Communication Ability: Effective 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: No Beliefs That Will Affect Care: None marital status: marital status details: Gerardo Harrington (30) [phone] Current Living Situation: Spouse and Family Current Living Situation Comment: lives with spouse, daughters, no pets current occupational status: unemployed 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 Other Information That Helps Us Care for You: No Feels Safe at Home: Yes Safety Concerns: Feels Safe At This Time Assistive Devices: None Physical Exam Constitutional: WD/WN, vitals as above well developed, well nourished and + well hydrated; no acute distress Respiratory: normal respiratory effort, lungs clear to auscultation no respiratory distress, no labored breathing and no cough Cardiovascular: RRR, no murmur, no edema Heart Sounds: normal S1 and normal S2 Gastrointestinal (Abdomen): normal bowel sounds, soft, nontender, no hepatosplenomegaly Inspection/Auscultation: abdomen not distended and no abdominal edema Musculoskeletal: no cyanosis or clubbing, extremities motor strength 5/5 Head/Neck/Chest: + head abnormal to inspection Skin: no rashes, warm and dry normal turgor Neurologic: PERRL, EOMI, accommodation nl, no face palsy, no dysarthria normal touch/pain/proprioception Psychiatric: A+Ox3, euthymic affect Apperance: appropriately dressed and appropriately groomed Genitourinary: OB Exam Monitor Tracing: + external FHT monitor used, + external uterine monitor used and + category I; no normal FHT variability, no early decelerations present, no late decelerations present and no variable decelerations Lymphatic: no cervical or axillary lymphadenopathy Results & Data ([facility]) Vital Signs (Past 12 Hours) Vital Signs Temp Pulse Resp BP Pulse Ox 04/20/21 07:06 94 H 126/63 04/20/21 06:28 91 H 93 04/20/21 06:25 95 H 94 04/20/21 06:23 98 H 98 04/20/21 06:18 94 H 97 04/20/21 06:13 98 H 94 04/20/21 06:08 89 96 04/20/21 06:07 89 93 04/20/21 06:03 83 100 04/20/21 05:58 87 99 04/20/21 05:53 116 H 99 04/20/21 05:48 104 H 97 04/20/21 05:46 103 H 134/66 04/20/21 05:40 36.9 C 20 Coding Level of Care Code None Diagnoses Insulin controlled gestational diabetes mellitus (GDM) during O24.414 Gestational diabetes mellitus (GDM) affecting , antepartum O24.419 Encounter for supervision of normal in multigravida, antepartum Z34.80 Previous delivery affecting , antepartum O34.219
[2021-04-20] MEDS ORDERED: NO NARCOTICS OR SEDATIVES SCH (07:30)
[2021-04-20] MEDS ORDERED: DC INTRASPINAL MORPHINE SCH (07:30)
[2021-04-20] MEDS ORDERED: SODIUM CHLORIDE 0.9% 1000ML 1,000 ML IV SCH ×2 (07:30→10:45)
[2021-04-20] MEDS ORDERED: MoRPHine SULFATE PF 1 MG/ML 10 ML AMP/VIAL ONE (07:42)
[2021-04-20] MEDS ORDERED: fentaNYL citrate 100 MCG/2 ML VIAL ONE (07:42)
[2021-04-20] MEDS ORDERED: OXYTOCIN 10 UNITS/ML 10ML VIAL ONE ×2 (07:46→07:47)
[2021-04-20] MEDS ORDERED: PHENYLEPHRINE 100MCG/ML 5ML SYR ONE (08:16)
[2021-04-20] MEDS ORDERED: ONDANSETRON INJ 2 MG/ML 2 ML VIAL ONE ×2 (08:30→09:12)
[2021-04-20] MEDS ORDERED: KETAMINE 50 MG/5 ML SYRINGE ONE (08:31)
[2021-04-20] MEDS ORDERED: DEXAMETHASONE SOD INJ 4 MG/ML VIAL ONE (09:12)
[2021-04-20] MEDS ORDERED: LIDOCAINE 2% MPF LOCAL 5 ML VIAL INFIL ONE (09:12)
[2021-04-20] MEDS ORDERED: SUCCINYLCHOLINE CHLORIDE 20 MG/ML 10 ML VIAL IV ONE (09:13)
[2021-04-20] MEDS ORDERED: PROPOFOL IV EMULSION 10 MG/ML 20 ML VIAL IV ONE (09:13)
--- NOTE | 2021-04-20 10:10 | Post Operative Brief Note ---
PG Immediate Post Op with CF Date of Surgery April 20, 2021 Pre & Post Diagnosis Operation Date: 04/20/21 07:30 Pre-Op Diagnosis: Term repeat . Post-Op Diagnosis: Same I identified the patient and participated in the time-out.: Yes Procedure Operation Date: 04/20/21 07:30 Actual Procedures p Section (Delivery of Baby Through Abdominal Incision) for live female in OR 3 at 0856 - Shay Sibley MD s Bilateral Tubal Ligation - Shay Sibley MD Surgeon Shay Sibley MD Weaving Loom Operator Dr. Sandoval Estimated Blood Loss 600 Findings Consistent with Post-Op Diagnosis Specimens Specimen Description: Placenta cord blood Drains Mike Catheter (Clear yellow urine.) OB Procedure charges OB Charges [id number] Add on Tubal for C/S
[2021-04-20] MEDS ORDERED: MAGNESIUM HYDROXIDE SUSP 30 ML UDC PO PRN (10:21)
[2021-04-20] MEDS ORDERED: SUPERCREAM 0.870% 15 GM JAR EXT PRN (10:21)
[2021-04-20] MEDS ORDERED: BENZOCAINE 20% AER SPR 82.5 GM CAN EXT PRN (10:21)
[2021-04-20] MEDS ORDERED: HYDROCORTISONE ACETATE 25 MG SUPP PR PRN (10:21)
[2021-04-20] MEDS ORDERED: SENNA 8.6 MG TAB PO PRN (10:21)
[2021-04-20] MEDS ORDERED: DIPHTHERIA/TETANUS/PERTUSSIS 0.5 ML SYR/VIAL IM ONE (10:21)
[2021-04-20] MEDS ORDERED: DROPERIDOL 5 MG/2 ML VIAL IV STA (10:52)
--- NOTE | 2021-04-20 11:08 | Anesthesiology Progress Note ---
Date of Service April 20, 2021 Anesthesia Post Procedure Vital Signs Vital Signs: Temp Pulse Resp BP Pulse Ox 04/20/21 11:01 98 H 93 04/20/21 11:00 98 H 139/68 93 04/20/21 10:56 96 H 94 04/20/21 10:55 97 H 94 04/20/21 10:50 98 H 138/65 92 04/20/21 10:49 98 H 93 04/20/21 10:45 97 H 94 04/20/21 10:44 102 H 92 04/20/21 10:40 103 H 135/67 98 04/20/21 10:36 102 H 93 04/20/21 10:35 103 H 95 04/20/21 10:34 99 H 139/70 04/20/21 10:30 105 H 136/76 95 04/20/21 10:25 106 H 96 04/20/21 10:22 108 H 94 04/20/21 10:20 110 H 152/76 H 95 04/20/21 10:15 111 H 98 04/20/21 10:10 111 H 141/69 H 100 04/20/21 07:49 103 H 97 04/20/21 07:48 98 H 93 04/20/21 07:44 103 H 97 04/20/21 07:39 101 H 95 04/20/21 07:34 96 H 99 04/20/21 07:29 99 H 97 04/20/21 07:06 36.4 C L 94 H 20 126/63 04/20/21 06:28 91 H 93 04/20/21 06:25 95 H 94 04/20/21 06:23 98 H 98 04/20/21 06:18 94 H 97 04/20/21 06:13 98 H 94 04/20/21 06:08 89 96 04/20/21 06:07 89 93 04/20/21 06:03 83 100 04/20/21 05:58 87 99 04/20/21 05:53 116 H 99 04/20/21 05:48 104 H 97 04/20/21 05:46 103 H 134/66 04/20/21 05:40 36.9 C 20 Transfer of Care Handoff Completed per policy Notes Mental Status: alert / awake / arousable Patient Amnestic to Procedure: Yes Nausea / Vomiting: adequately controlled Pain: adequately controlled and improving with treatment Airway Patency, RR, SpO2: stable & adequate BP & HR: stable & adequate Hydration State: stable & adequate Neuraxial Anesthesia: was administered and sensory block is resolving Anesthetic Complications: no major complications apparent and Pt Satisfied with anesthetic care Notes: The patient had a spinal placed for the procedure. It initially appeared to be working as her blood pressure dropped. However, she was able to move her feet and felt pinching when tested by the surgeon. Dr. Clarke assisted with intubating the patient. The procedure was uneventful and she was extubated without incident. The patient has had some pain and nausea in recovery. She was given IV ketorolac. She will be placed on a hydromorphone PROCESS CHEESE COOKER 0.2 mg every 15 minutes with SpO2 and ETCO2 monitoring. The PROCESS CHEESE COOKER will be adjusted as necessary.
[2021-04-20] MEDS: HYDROmorphone PCA 30 MG/30 ML IV PRN ×2 (11:23→15:55)
[2021-04-20] MEDS: OXYTOCIN 20 UNITS in LACTATED RINGER'S 1,000 ML IV SCH ×2 (11:35→20:27)
[2021-04-20] MEDS: SIMETHICONE 80 MG CHEW PO SCH ×2 (14:42→20:28)
[2021-04-20] MEDS ORDERED: LORATADINE 10 MG TAB PO ONE (19:30)
[2021-04-20] MEDS: DOCUSATE SODIUM 100 MG CAP PO SCH (20:28)
[2021-04-20] MEDS: IBUPROFEN 600 MG TAB PO PRN (20:50)
[2021-04-21] MEDS ORDERED: ONDANSETRON INJ 2 MG/ML 2 ML VIAL IV PRN (01:20)
[2021-04-21] MEDS ORDERED: diphenhydrAMINE 50 MG/ML VIAL IV PRN (01:20)
[2021-04-21] MEDS ORDERED: diphenhydrAMINE Capsule 25 MG CAP PO PRN (01:20)
[2021-04-21] MEDS ORDERED: KETOROLAC 30 MG/ML VIAL IV PRN (01:20)
[2021-04-21] MEDS ORDERED: PROMETHAZINE HCL 25 MG in SODIUM CHLORIDE 0.9% 50 ML IV PRN (01:20)
[2021-04-21] MEDS ORDERED: MEPERIDINE HCL 50 MG/ML CARP IV PRN (01:20)
[2021-04-21] MEDS: IBUPROFEN 600 MG TAB PO PRN ×4 (04:57→17:28)
--- NOTE | 2021-04-21 06:12 | Obstetrical Progress Note ---
Date of Service <Waqas Jeter DO - Last Filed: 04/21/21 07:27> April 21, 2021 Assessment & Plan <Waqas Jeter DO - Last Filed: 04/21/21 07:27> (1) Encounter for care and examination after delivery: 31 yo post op day 1 from C/S, doing well. -Continue routine post care. - vital signs reviewed and WNL. (Tmax 36.9) -Blood type O+, GBS -, Rubella Immune -Encourage ambulation, monitor and control pain with Motrin, tylenol PRN, resume regular diet, monitor lochia. -encourage breast feeding. Breast pump [needed/already has]. -hemoglobin 10.4 <Mariella Jones MD, FACOG - Last Filed: 04/21/21 07:42> (1) Encounter for care and examination after delivery: Subjective <Waqas Jeter DO - Last Filed: 04/21/21 07:27> Ambulation: ambulating normally Voiding: no voiding problems Passing Gas:: Yes Diet Tolerance:: clear liquids Lochia:: Small Feeding Type:: breast feeding Current Pain Level(1-10): 0 Review of Systems Denies fever, chills, sweats Denies shortness of breath, difficulty breathing, chest pain, palpitations, chest pressure. Denies breast pain. Denies dysuria. Denies headache or changes in vision Physical Exam <Waqas Jeter DO - Last Filed: 04/21/21 07:27> General: Alert, oriented. No acute distress. Cardiac: Regular rate and rhythm, no murmurs/rubs/gallops. Respiratory: Clear to auscultation bilaterally a/p, no wheezes/rales/rhonchi. No increased work of breathing. Symmetrical chest rise. No respiratory distress. Abdomen: Soft, nontender, nondistended. Bowel sounds present. Uterus: Uterine fundus firm, palpable 2 cm below umbilicus. Surgical scar clean and healing well. Lower Extremities: No lower extremity edema or swelling. No deep calf pain. Ramez's negative bilaterally Results & Data ([facility]) <Waqas StarkgemmaDO stefan - Last Filed: 04/21/21 07:27> Vital Signs (Past 12 Hours) Vital Signs Temp Pulse Resp BP Pulse Ox 04/21/21 04:25 36.6 C 95 H 18 123/76 97 04/21/21 02:00 18 94 04/21/21 01:20 18 95 04/21/21 00:05 18 96 04/20/21 23:55 36.5 C 98 H 18 108/73 95 04/20/21 23:05 18 95 04/20/21 22:25 18 95 04/20/21 21:20 18 96 04/20/21 20:30 36.5 C 98 H 18 113/69 97 04/20/21 19:15 18 96 <Mariella Jones MD, FACOG - Last Filed: 04/21/21 07:42> Co-Signing Physician Notes Resident Physician Supervision Note: I was present with [Name of resident] during the history and exam. I di scussed the case with the resident and agree with the findings and plan as documented in the note. Any exceptions or clarifications are listed here: [None] Documented By: Mariella Jones MD, FACOG Resident Activity Tracking <Waqas Jeter DO - Last Filed: 04/21/21 07:27> Resident Involvement: Resident Care Provided Care Provided: OB Delivery
[2021-04-21 06:40] LABS: Hematocrit (blood only) 33.3 % (37-47); Hemoglobin 10.4 g/dL (12.0-16.0); Mean Corpuscular Hemoglobin 25.5 pg (25-34); Mean Corpuscular Hgb Conc 31.2 g/dL (32-36); Mean Corpuscular Volume 81.6 fL (80-100); Mean Platelet Volume 10.3 fL (7.4-10.4); Platelet Count 187 K/uL (130-400); RDW Coefficient of Variation 16.8 % (11.5-14.5); RDW Standard Deviation 49.9 fL (36.4-46.3); Red Blood Count 4.08 M/uL (4.2-5.4); White Blood Count 10.66 K/uL (4.8-10.8)
[2021-04-21 07:20] LABS: ALC (manual) 2.41 K/uL (1.2-3.4); Anisocytosis Present; Eosinophils # (manual) 0.37 K/uL (0-0.5); Eosinophils % (manual) 3.5 %; Lymphocytes # (manual) 2.41 K/uL (1.2-3.4); Lymphocytes % (manual) 22.6 %; Monocytes # (manual) 0.18 K/uL (0.11-0.59); Monocytes % (manual) 1.7 %; Neutrophils % (manual) 72.2 %; Polychromasia 1+; Tear Drop Cells Occasional
[2021-04-21] MEDS: SIMETHICONE 80 MG CHEW PO SCH ×4 (08:32→20:32)
[2021-04-21] MEDS: DOCUSATE SODIUM 100 MG CAP PO SCH ×2 (08:32→20:32)
[2021-04-21] MEDS: PRENATAL VITAMIN 1 TAB PO SCH (08:32)
[2021-04-21] MEDS: FERROUS SULFATE 325 MG TAB PO SCH (08:32)
[2021-04-21] MEDS ORDERED: LORATADINE 10 MG TAB PO SCH (09:00)
[2021-04-21] MEDS: oxyCODONE/ACETAMINOPHEN 5mg/325mg TAB PO PRN ×3 (09:30→17:29)
--- NOTE | 2021-04-21 15:25 | Anesthesiology Progress Note ---
Date of Service April 21, 2021 Assessment & Plan Admission and Anticipated Discharge Date Admission Date: April 20, 2021 Subjective Pt c/o headache and pain in neck that started post c.section under SAB. States pain is mild to moderate, worsened with upright position and activity, and relieved by recumbency. States had some relief with ibuprofen. I believe presentation is consistent with post-dural puncture headache (PDPH). Discussed aggressive (epidural blood patch) vs. conservative mgt. (hydration, caffeine, analgesics). Symptoms are mild at present and I do not feel blood patch is indicated at this time. Pt agreed. Re-consult if complaints persist or worsen. Physical Exam Vital Signs: Last Vital Signs Temp 36.6 C 04/21/21 08:15 Pulse 105 H 04/21/21 08:15 Resp 20 04/21/21 08:15 BP 102/76 04/21/21 08:15 Pulse Ox 98 04/21/21 08:15 Results & Data ([facility]) Medications Administered Docusate Sodium (Docusate Sodium 100 Mg Cap) 100 mg PO DAILY@ MARY Stop: 05/20/21 20:59 Last Admin: 04/21/21 08:32 Dose: 100 mg Documented by: [id number] Admin: 04/20/21 20:28 Dose: 100 mg Documented by: [id number] Ferrous Sulfate (Ferrous Sulfate 325 Mg Tab) 325 mg PO DAILY@08 [facility] Stop: 05/21/21 07:59 Last Admin: 04/21/21 08:32 Dose: 325 mg Documented by: [id number] Lactated Ringer's (Lr) 1,000 mls @ 125 mls/hr IV .Q8H MARY Stop: 05/20/21 10:20 Last Infusion: 04/21/21 08:15 Dose: 0 mls/hr Documented by: [id number] Admin: 04/21/21 04:23 Dose: 125 mls/hr Documented by: [id number] Ibuprofen (Ibuprofen 600 Mg Tab) 600 mg PO Q4H PRN PRN Reason: Pain Stop: 05/20/21 10:20 Last Admin: 04/21/21 13:26 Dose: 600 mg Documented by: [id number] Admin: 04/21/21 09:29 Dose: 600 mg Documented by: [id number] Admin: 04/21/21 04:57 Dose: 600 mg Documented by: [id number] Admin: 04/20/21 20:50 Dose: 600 mg Documented by: [id number] Oxycodone/Acetaminophen (Oxycodone/Acetaminophen 5mg/325mg Tab) 1 - 2 tab PO Q 4H PRN PRN Reason: Pain Stop: 05/05/21 01:19 Last Admin: 04/21/21 13:27 Dose: 1 tab Documented by: [id number] Admin: 04/21/21 09:30 Dose: 1 tab Documented by: [id number] Prenat Multivit/Customer Professional/Iron/Folic Ac ( Vitamin 1 Tab) 1 tab PO DAILY@08 [facility] Stop: 05/21/21 07:59 Last Admin: 04/21/21 08:32 Dose: 1 tab Documented by: [id number] Simethicone (Simethicone 80 Mg Chew) 80 mg PO DAILY@08,,, [facility] Stop: 05/20/21 12:59 Last Admin: 04/21/21 12:08 Dose: 80 mg Documented by: [id number] Admin: 04/21/21 08:32 Dose: 80 mg Documented by: [id number] Admin: 04/20/21 20:28 Dose: 80 mg Documented by: [id number] Admin: 04/20/21 14:42 Dose: Not Given Documented by: [id number]
[2021-04-21] MEDS ORDERED: bisacodyL 5 MG TABEC PO SCH (20:00)
[2021-04-21] MEDS: LORATADINE 10 MG TAB PO SCH (21:39)
--- NOTE | 2021-04-21 23:31 | Operative Report (OR) ---
PROCEDURE: Repeat low transverse section with bilateral tubal ligation. SURGEON: Shay Sibley MD PROGRAM REVIEW DIRECTOR: Kajal Sandoval MD PREOPERATIVE DIAGNOSES: 1. Single intrauterine at 39 weeks 1 day gestational age. 2. History of section x2. 3. BMI greater than 50. 4. Insulin-dependent gestational diabetes. 5. GBS positive. 6. Desiring permanent sterilization. POSTOPERATIVE DIAGNOSES: 1. Single intrauterine at 39 weeks 1 day gestational age. 2. History of section x2. 3. BMI greater than 50. 4. Insulin-dependent gestational diabetes. 5. GBS positive. 6. Desiring permanent sterilization. 7. Status post procedure. ESTIMATED BLOOD LOSS: 600 mL. DRAINS: Mike catheter. FLUIDS: Continuous lactated Ringer. URINE OUTPUT: Per Mike catheter. COMPLICATIONS: None. FINDINGS: Viable female infant with weight of 8 pounds 9 ounces and Apgars of 5 and 8 at 1 and 5 min utes respectively. Normal-appearing ovaries and bilateral fallopian tubes. DESCRIPTION OF PROCEDURE: The patient was taken to the operating room after consents were assured. Upon presentation, she was properly identified. The patient was initially given spinal anesthesia, w hich was inadequate and ended up needing to go under general anesthesia. The patient was prepped and draped prior to being induced for general anesthesia and after the patient was put to sleep, we imme diately began the case. A Pfannenstiel incision was then made at the prior location of her prior C-s ections. This was carried down to the underlying fascia with the Bovie. The fascia was nicked in th e midline and extended laterally in each direction with pickups and Bar scissors. The fascia was th en grasped with Kochers x2 and elevated off the underlying rectus muscles using blunt dissection. Th e inferior aspect of the fascia was also grasped with Shae and elevated off the underlying rectus muscles using blunt dissection and Bar scissors. The midline was then entered bluntly and room was made for adequate delivery and the abdomen was placed on stretch. An Toni retractor was then place d and the bladder flap was created in normal fashion. A low transverse uterine incision was then made with a knife. The amniotic cavity was entered bluntl y and the hysterotomy was placed on stretch to provide adequate room for delivery. Head of the neona te was noted to be in cephalic position, delivered through the hysterotomy without difficulty, the lizbeth dy and shoulders quickly followed. was noted to be initially vigorous and then the cord was quickly clamped and cut. returned to the awaiting nursery staff for further evaluation. Att ention was then turned to delivery of placenta, which delivered with fundal massage, uterine massage, and gentle cord traction. The uterus was then exteriorized, wrapped in wet lap, and several passes were made to remove any remaining membranes with a dry lap. The hysterotomy was then reapproximated with 3-0 Vicryl continuous running stitch. Excellent hemostasis was noted after a single layer. Due to the patient's desire for tubal ligation, a second layer was not performed. A tubal ligation was then initiated. The right fallopian tube was identified and a modified Edouard tubal ligation was pe rformed with tubal segments sent to pathology for evaluation. Procedure was then repeated on the opposite fallopian tube and both pedicles were noted to be hemosta tic. The hysterotomy was then reinspected and still noted to be hemostatic and the uterus returned t o maternal abdomen. The Toni retractor was then removed and right and left pericolic gutters were cleaned of clots and debris. The hysterotomy was then reinspected and both tubal pedicles were also i nspected and noted to be hemostatic. The space of Retzius, subcutaneous layers, and muscle layers we re all inspected and noted to be hemostatic. The fascial layer was reapproximated with 0 Vicryl in c ontinuous running stitch. The subcutaneous layers were reapproximated with 2-0 plain in 2 layers. T he skin was reapproximated with 3-0 Vicryl on a Raj needle. Needle, sponge, and instrument counts were correct at the completion of the case. Both mother and were stable in the immediate pos t-delivery period. Job ID: [id number]
[2021-04-22] MEDS: IBUPROFEN 600 MG TAB PO PRN ×2 (03:15→08:26)
[2021-04-22 06:53] LABS: Hematocrit (blood only) 32.8 % (37-47); Hemoglobin 10.4 g/dL (12.0-16.0)
[2021-04-22] MEDS: SIMETHICONE 80 MG CHEW PO SCH (08:25)
[2021-04-22] MEDS: DOCUSATE SODIUM 100 MG CAP PO SCH (08:26)
[2021-04-22] MEDS: FERROUS SULFATE 325 MG TAB PO SCH (08:26)
[2021-04-22] MEDS: PRENATAL VITAMIN 1 TAB PO SCH (08:26)
[2021-04-22] MEDS: LORATADINE 10 MG TAB PO SCH (09:15)
[2021-04-22] MEDS ORDERED: bisacodyL 10 MG SUPP PR PRN (10:11)
--- NOTE | 2021-04-22 10:55 | Obstetrical Progress Note ---
Date of Service April 22, 2021 Assessment & Plan (1) Encounter for care and examination after delivery: 31yo day 2 S/p rLTCS. Doing well. Stable for discharge Subjective Ambulation: ambulating normally Voiding: no voiding problems Passing Gas:: Yes Diet Tolerance:: regular diet Lochia:: Moderate Feeding Type:: breast feeding Physical Exam Constitutional WD/WN, vitals as above Respiratory normal respiratory effort; no respiratory distress and no labored breathing Gastrointestinal (Abdomen) Inspection/Auscultation: abdomen normal to inspection; abdomen not distended Percussion/Palpation: abdomen soft; abdomen nontender, no guarding and abdomen not rigid Incision: C/D/I Genitourinary OB Exam Abdomen: + fundal height Fundus: + firm and + relation to umbilicus (Below); not tender or not boggy Results & Data ([facility]) Vital Signs (Past 12 Hours) Vital Signs Temp Pulse Resp BP Pulse Ox 04/22/21 10:26 36.7 C 90 20 121/81 98 04/22/21 08:15 36.7 C 90 20 121/81 98
[2021-04-22] MEDS ORDERED: NYSTATIN POWDER 15GM BTL EXT SCH (14:00)
--- NOTE | 2021-04-27 06:29 | Discharge Summary (DS) ---
DATE OF ADMISSION: 04/20/2021. DATE OF DISCHARGE: 04/22/2021. HOSPITAL COURSE: The patient was admitted for a repeat low transverse section. Procedure wa s performed without difficulty or complication. The patient did well without any complica tions or concerns and was determined to be stable for discharge on postoperative day #2. The patient was discharged home with both written and verbal instructions with planned followup at 6 weeks for r outine visit. Job ID: [id number]
== END 2021-04-22 12:27 | disposition home or self-care (01) | DRG 785 ==
LOC: 4S1 05:25 → EDSTATUS 07:30 → 4S2 15:00
PROC: M.PPTLD (2021-04-20 07:30)
DX: Z37.0 Single live birth; O24.424 Gestational diabetes mellitus in childbirth, insulin controlled; Z30.2 Encounter for sterilization; Z79.82 Long term (current) use of aspirin; Z79.899 Other long term (current) drug therapy; O89.4 Spinal and epidural anesthesia-induced headache during the puerperium; O99.214 Obesity complicating childbirth; Z79.4 Long term (current) use of insulin; Z3A.39 39 weeks gestation of pregnancy; E66.01 Morbid (severe) obesity due to excess calories; O34.211 Maternal care for low transverse scar from previous cesarean delivery; Z91.018 Allergy to other foods; O99.824 Streptococcus B carrier state complicating childbirth; Z87.891 Personal history of nicotine dependence; N85.8 Other specified noninflammatory disorders of uterus